=== PATIENT | female | born 1990 | race Caucasian/White ===

== ENCOUNTER → 2023-04-16 | Outpatient (CLI) | payer OTHER ==
[2023-04-17 07:07] LABS: RUBELLA AB IGG-REFLAB 7.97 index (Immune >0.99); RUBEOLA (MEASLES) IGG >300.0 AU/mL (Immune >16.4)
== END | disposition home or self-care (01) ==
LOC: LABMN 11:05
PROVIDERS: ATTEND Internal Medicine
DX: Z02.1 Encounter for pre-employment examination (principal)
CPT/HCPCS: 86706; 86735; 86762; 86765; 86787